=== PATIENT | male | born 1960 | race Caucasian/White ===

== ENCOUNTER → 2022-11-28 08:15 | Outpatient (BNVA) | payer MEDICARE, SELFPAY | PROVIDERS: PCP Nurse Practitioner Family; Visit Provider Nurse Practitioner Family | DX: I10 Essential (primary) hypertension (principal) | CPT/HCPCS: 80053; 80061; 82607; 83735; 84443; 85025 ==

== ENCOUNTER → 2023-02-11 11:40 | Outpatient (BNVA) | payer MEDICARE, SELFPAY | PROVIDERS: PCP Nurse Practitioner Family; Visit Provider Nurse Practitioner Family | DX: Z12.5 Encounter for screening for malignant neoplasm of prostate (principal); M25.572 Pain in left ankle and joints of left foot | CPT/HCPCS: 73610; G0103 ==

== ENCOUNTER 2023-03-04 07:32 | Outpatient (CLI) | payer MEDICARE, SELFPAY ==
--- NOTE | 2023-03-04 07:30 | CT_ITS ---
WS: [id number] CT LEFT ANKLE, NONCONTRAST. 3-D. HISTORY: M25.572 - Pain in left ankle and joints of left foot Technique: All CT scans at [facility] use at least one of these dose optimization techniques: automated exposure control; mA and/or kV adjustment per patient size (includes targeted exams where dose is matched to clinical indication); or iterative reconstruction. DLP: 118.52 mGy.cm COMPARISON: LEFT ankle radiograph 02/11/2023 No acute fracture or dislocation. No osteochondral lesions. There are a few small subchondral cystic changes involving the talus. No loose body or fracture. The overlying bony cortex is intact. No signi ficant narrowing of the joint space. Normal position of the flexor and extensor tendons visualized th rough the ankle joint. There is no significant joint effusion. No foreign body or soft tissue mass id entified. Small calcaneal spur measuring 6 mm. Subtalar joint is minimally narrowed. There are a few scattered calcifications in the anterior tibial artery. CT/CT ankle LT wo con* [id number] IMPRESSION: 1. No acute fracture or dislocation. 2. Minimal degenerative changes at the tibiotalar joint and subtalar joint. 3. No loose body and no significant joint effusion. 4. Peripheral arterial atherosclerotic disease, mild.
--- NOTE | 2023-03-04 08:42 | CT_ITS ---
WS: [id number] LDCT LUNG CANCER SCREENING HISTORY: PERSONAL HISTORY OF NICOTINE DEPENDENCE TECHNIQUE: Axial imaging performed from the apices to 1 cm below the costophrenic angles. Coronal and sagittal reformats are submitted with axial MIP series. All CT scans at [facility] use at least one of these dose optimization techniques: automated exposure control; mA and/or kV adjustment per patient size (includes targeted exams where dose is matched to clinical indication); or iterativ e reconstruction. DLP: 82.21 mGy.cm DIvol: Mean CTDIvol: 1.60 (mGy) COMPARISON: None. Diagnostic quality: Satisfactory Lungs: No abnormality. Heart: Normal size heart with no pericardial effusion.. Other findings: Extensive artifact over the thorax secondary to small metallic fragments. One of thes e artifacts within the anterior mediastinum. No adrenal mass. Metallic artifact upper abdomen either within the liver or close to the liver. Additional metallic artifact along the inferior heart border. Mild anterior wedging of T6. CT/CT lung screening [id number] IMPRESSION: LUNG-RADS: 1-Negative FOLLOW UP: 12 Month: Continue annual screening with LDCT OTHER FINDINGS (S MODIFIER): None.
== END 2023-03-04 07:33 | disposition home or self-care (01) ==
PROVIDERS: PCP Nurse Practitioner Family; Visit Provider Nurse Practitioner Family
DX: Z12.2 Encounter for screening for malignant neoplasm of respiratory organs (principal); Z87.891 Personal history of nicotine dependence; M25.572 Pain in left ankle and joints of left foot
CPT/HCPCS: 71271; 73700

== ENCOUNTER → 2023-03-15 09:24 | Outpatient (BNVA) | payer MEDICARE, SELFPAY | PROVIDERS: PCP Nurse Practitioner Family; Visit Provider Podiatrist Foot & Ankle Surgery | DX: I73.9 Peripheral vascular disease, unspecified (principal); I99.8 Other disorder of circulatory system; M25.572 Pain in left ankle and joints of left foot | CPT/HCPCS: 99204 ==

== ENCOUNTER 2023-03-16 12:52 | Emergency (ER) | payer MEDICARE, SELFPAY ==
[2023-03-16 12:56] VITALS: BP 135/84; PULSE 78; RESP 16; TEMP 36.8; O2SAT 94; BMI 27.8
--- NOTE | 2023-03-16 13:59 | ED_ITS ---
HPI - Extremity Problem General: Chief complaint: Extremity Problem,Nontraumatic Stated complaint: left foot pain Time Seen by Provider: 03/16/23 13:54 History of Present Illness: Mr. Perdomo is a 62-year-old gentleman presenting the emergency department for left foot pain. He previously has had problems with this foot over the past month however notes excruciating pain without known specific provoking event starting last night end discoloration of his great toe. Apparently he saw podiatry and was told that he has a clogged veins and has further outpatient eval ordered but due to pain cannot wait. Intensity is severe. Worse with weightbearing and palpation. No other specific changes in health, exacerbating, or alleviating factors identified. Onset (ago): day(s) Pain Consistency: constant Quality: burning and aching Radiation: none Exacerbating factors: weight bearing, walking and palpation Review of Systems General: Reports: 10 or more systems reviewed and unremarkable except in HPI and below PFSH ED 2 PFSH: Medical History Accelerated essential hypertension High cholesterol No pertinent family history Surgical History H/O left knee surgery Social History Smoking and tobacco status: current every day smoker cigarettes Packs smoked per day: 1.5 Years cigarettes smoked: 45 Second hand smoke exposure: No Alcohol intake: current Alcohol intake frequency: few times a week Alcohol type: beer Substance/Drug Use: never Lives independently: Yes Household members: significant other Marital status: Single service: No Current occupational status: disabled Current gender identity: Male Special kelly needs: No Physical Exam Const: COMMON NORMALS: alert GENERAL APPEARANCE: cooperative and well developed HENMT: COMMON NORMALS: normocephalic and atraumatic HEAD & SCALP: normocephalic and atraumatic Eye: COMMON NORMALS: conjunctivae normal CONJUNCTIVA: Yes conjunctivae normal SCLERA: sclerae normal Neck/C-Spine: COMMON NORMALS: supple GENERAL: Yes trachea midline Resp: COMMON NORMALS: normal respiratory effort EFFORT & INSPECTION: Yes able to speak in complete sentences Cardio: COMMON NORMALS: regular rate and regular rhythm RATE: regular rate RHYTHM: regular rhythm GI: COMMON NORMALS: Soft to palpation PALPATION: Yes Soft to palpation and No Tenderness to palpation present (GI) Extremity: NARRATIVE EXTREMITY EXAM: Left lower extremity with some prominent firm edema to the top of the foot. There is generalized tenderness palpation. Discoloration of the tip of the great toe. GENERAL: Yes normal exam except as noted and No edema Neuro: COMMON NORMALS: moves all extremities SENSORIUM/ORIENTATION: Yes alert and No Orientation impaired Psych: COMMON NORMALS: mental status grossly normal and Normal thought process present THOUGHT PROCESS: Normal thought process present Course Vital Signs: Vital signs: Vital Signs Temperature 98.3 F 03/16/23 12:56 Pulse Rate 76 03/16/23 19:08 Respiratory Rate 16 03/16/23 19:08 Blood Pressure 110/81 03/16/23 19:08 Pulse Oximetry 96 03/16/23 19:08 Oxygen Delivery Me thod Room Air 03/16/23 17:42 MDM - Extremity (Nontraumatic) Medical Decision Making 62-year-old gentleman presenting with atraumatic foot pain. Does have a history of similar though is now more severe and occurring constant at rest. Unable to palpate DP/PT. There is coolness however there is also evidence of collateral circulation with cap refill intact. Labs notable for mild leukocytosis which is nonspecific, normal hemoglobin and platelet count. Metabolic panel without significant derangement. Normal lactic acid. Patient has evidence of occlusion/thrombosis of the distal left SFA. There is flow below this however likely not sufficient. Clinically patient has rest pain and arterial insufficiency. During ED course patient treated with analgesia and heparin. Patient was accepted by vascular surgeon at [facility] and transferred for vascular intervention. The results of ED evaluation were discussed with the patient including plan for transfer due to requirement for level of care not available if discharged to prevent significant worsening/deterioration. Patient agreeable with plan. Medical Records I reviewed the patient's medical records. Lab Data I reviewed the patient's lab results. 03/16/23 14:43 03/16/23 14:43 Radiology Impressions Foot X-Ray 03/16/23 14:04 IMPRESSION: 1. 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 2. No acute bony abnormality. Lower Extremity CTA 03/16/23 14:04 IMPRESSION: 1. 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 2. The left popliteal artery is poorly visualized due to extensive streak artifact at the knee however just distal to the knee, there is a small amount of contrast in a very small caliber left popliteal artery most likely due to collateral vessels. 3. There is good opacification of the left posterior tibial artery throughout the left leg ankle and foot. The left peroneal artery is opacified but very atretic. Intermittent contrast is identified in the very atretic left peroneal artery. Laboratory Results WBC 12.7 10^3/uL (4.0-10.0) H 03/16/23 14:43 RBC 5.08 10^6/uL (4.1-5.3) 03/16/23 14:43 Hgb 15.4 g/dL (11.7-16.6) 03/16/23 14:43 Hct 47.5 % (42.0-52.0) 03/16/23 14:43 MCV 93.5 fl (80-94) 03/16/23 14:43 MCH 30.3 pg (28.0-34.0) 03/16/23 14:43 MCHC 32.4 g/dL (30.0-36.0) 03/16/23 14:43 RDW 13.6 % (12.1-15.1) 03/16/23 14:43 Plt Count 400 10^3/cmm (130-400) 03/16/23 14:43 MPV 10.3 fL (7.4-10.4) 03/16/23 14:43 Neut % (Auto) 67.5 % 03/16/23 14:43 Lymph % (Auto) 21.1 % 03/16/23 14:43 Beadle % (Auto) 7.6 % 03/16/23 14:43 Eos % (Auto) 2.3 % 03/16/23 14:43 Baso % (Auto) 0.9 % 03/16/23 14:43 Neut # (Auto) 8.57 10^3/uL (1.8-7.7) H 03/16/23 14:43 Lymph # (Auto) 2.7 10^3/uL (0.8-4.8) 03/16/23 14:43 Beadle # (Auto) 1.0 10^3/uL (0.2-0.9) H 03/16/23 14:43 Eos # (Auto) 0.3 10^3/uL (0.0-0.8) 03/16/23 14:43 Baso # (Auto) 0.1 10^3/uL (0.0-0.1) 03/16/23 14:43 Nucleated RBC % (auto) 0 % 03/16/23 14:43 Nucleated RBCs # 0.0 /100WBC 03/16/23 14:43 PT 13.60 SECONDS (12.1-14.9) 03/16/23 14:43 INR 1.01 (0.8-1.2) 03/16/23 14:43 APTT 35.1 SECONDS (23.9-36.7) 03/16/23 14:43 Sodium 137 mmol/L (136-145) 03/16/23 14:43 Potassium 4.7 mmol/L (3.5-5.1) 03/16/23 14:43 Chloride 102 mmol/L (98-107) 03/16/23 14:43 Carbon Dioxide 22 mmol/L (22-29) 03/16/23 14:43 Anion Gap 17.7 (5-19) 03/16/23 14:43 BUN 13 mg/dL (8-23) 03/16/23 14:43 Creatinine 0.9 mg/dL (0.7-1.2) 03/16/23 14:43 GFR Calculation 85.8 mL/min (90-130) L 03/16/23 14:43 Glucose 90 mg/dL (65-115) 03/16/23 14:43 Calculated Osmolality 284 mOsm/kg (285-295) L 03/16/23 14:43 Lactic Acid 1.0 mmol/L (0.5-2.2) 03/16/23 14:43 Calcium 9.3 mg/dL (8.5-10.5) 03/16/23 14:43 Total Bilirubin 0.3 mg/dL (0.15-1.2) 03/16/23 14:43 AST 35 U/L (0-40) 03/16/23 14:43 ALT 59 U/L (0-41) H 03/16/23 14:43 Alkaline Phosphatase 84 U/L (40-130) 03/16/23 14:43 Total Protein 7.0 g/dL (6.6-8.7) 03/16/23 14:43 Albumin 4.5 g/dL (3.5-5.2) 03/16/23 14:43 Globulin 2.5 g/dL (1.3-4.6) 03/16/23 14:43 Discharge Plan Discharge Patient Disposition: Transfer to ED Clinical Impression: Ischemic foot pain at rest Condition: Stable Prescriptions: No Action rosuvastatin 10 mg tablet 10 mg PO DAILY gabapentin 300 mg capsule 300 mg PO TID 90 Days Qty: 270 1RF diclofenac sodium 75 mg tablet,delayed release (DR/EC) 75 mg PO BID PRN (Reason: pain) Qty: 180 1RF (DME) CAM Boot Left See Rx Instructions .Route .MEDSUPPLY Qty: 1 0RF Rx Instructions: size to fit losartan 25 mg tablet 25 mg PO DAILY Qty: 90 3RF amitriptyline 10 mg Tablet 10 mg PO DAILY PRN (Reason: Anxiety) Referrals: Carla Browne FNP [Nurse Practitioner] - Coding Level of Care Code ED Assistant Chief Train Dispatcher for Gautam Arauz
--- NOTE | 2023-03-16 14:04 | XRR_ITS ---
PROCEDURE INFORMATION: Exam: XR Left Foot Exam date and time: 03/16/2023 2:17 PM Age: 62 years old Clinical indication: Pain; Foot; Left; Additional info: Foot pain, atraumatic TECHNIQUE: Imaging protocol: Radiologic exam of the left foot. Views: 3 or more views. COMPARISON: CR XR ankle LT min 3V* [id number] 02/11/2023 11:54 AM FINDINGS: Bones/joints: Are [id number] degenerative changes especially in the midfoot. There is calcaneal enthesopathy. No acute fracture, dislocation or bony destruction. No osteomyelitis. No inflammatory erosions. It appears there may be an incidental calcaneal navicular coalition/fibrous coalition on the oblique view. Soft tissues: Normal. XR/XR foot LT min 3V* [id number] IMPRESSION: 1. 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 2. No acute bony abnormality.
--- NOTE | 2023-03-16 14:04 | CTR_ITS ---
PROCEDURE INFORMATION: Exam: CTA Left Lower Extremity With Contrast Exam date and time: 03/16/2023 3:15 PM Age: 62 years old Clinical indication: Pain; Foot; Left; Additional info: L foot pain, discoloration, eval arterial insufficiency TECHNIQUE: Imaging protocol: Computed tomographic angiography of the left lower extremity with contrast. 3D rendering (Not supervised by radiologist): MIP and/or 3D reconstructed images were created by the technologist. Radiation optimization: All CT scans at this facility use at least one of these dose optimization techniques: automated exposure control; mA and/or kV adjustment per patient size (includes targeted exams where dose is matched to clinical indication); or iterative reconstruction. Contrast material: OMNI 350; Contrast volume: 100 ml; Contrast route: INTRAVENOUS (IV); REPORTING DATA: Count of CT and Cardiac NM exams in prior 12 months: This patient has received 2 known CTs and 0 known cardiac nuclear medicine studies in the 12 months prior to the current study. COMPARISON: CT ankle LT wo con* [id number] 03/04/2023 7:46 AM RADIATION DOSE METRICS: Total DLP (mGy-cm): 464.71 FINDINGS: Left femoral/popliteal arteries: Left iliac, external iliac, common femoral and proximal superficial femoral arteries are patent with mild plaque. 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 The left popliteal artery is poorly visualized due to extensive streak artifact at the knee however just distal to the knee, there is a small amount of contrast in a very small caliber left popliteal artery most likely due to collateral vessels. Left infrapopliteal arteries: There is good opacification of the left posterior tibial artery throughout the left leg ankle and foot. The left peroneal artery is opacified but very atretic. Intermittent contrast is identified in the very atretic left peroneal artery. Bones/joints: There is a satisfactory appearance of the left total knee arthroplasty. No acute bony abnormality. There is a moderate sized left knee joint effusion. Soft tissues: Several metallic BBs are noted in the soft tissues of both upper thighs and pelvis. [place] [id number] IMPRESSION: 1. 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 2. The left popliteal artery is poorly visualized due to extensive streak artifact at the knee however just distal to the knee, there is a small amount of contrast in a very small caliber left popliteal artery most likely due to collateral vessels. 3. There is good opacification of the left posterior tibial artery throughout the left leg ankle and foot. The left peroneal artery is opacified but very atretic. Intermittent contrast is identified in the very atretic left peroneal artery.
[2023-03-16 14:37] VITALS: RESP 16; O2SAT 95
[2023-03-16] MEDS: morphine 4 mg/mL SDV 1 mL IVP (14:37)
[2023-03-16 14:52] VITALS: BP 135/81; RESP 16; O2SAT 95
[2023-03-16 15:06] LABS: Basophils # 0.1 10^3/uL (0.0-0.1); Basophils % 0.9 %; Eosinophils # 0.3 10^3/uL (0.0-0.8); Eosinophils % 2.3 %; Hematocrit 47.5 % (42.0-52.0); Hemoglobin 15.4 g/dL (11.7-16.6); Lymphocytes # 2.7 10^3/uL (0.8-4.8); Lymphocytes % 21.1 %; Mean Corpuscular HGB Conc 32.4 g/dL (30.0-36.0); Mean Corpuscular Hemoglobin 30.3 pg (28.0-34.0); Mean Corpuscular Volume 93.5 fl (80-94); Mean Platelet Volume 10.3 fL (7.4-10.4); Monocytes % 7.6 %; Neutrophils # 8.57 10^3/uL (1.8-7.7); Neutrophils % 67.5 %; Nucleated Red Blood Cells % 0 %; Platelet Count 400 10^3/cmm (130-400); Red Blood Count 5.08 10^6/uL (4.1-5.3); Red Cell Distribution Width 13.6 % (12.1-15.1); White Blood Count 12.7 10^3/uL (4.0-10.0)
[2023-03-16 15:19] LABS: INR 1.01 (0.8-1.2)
[2023-03-16 15:21] LABS: Partial Thromboplastin Time 35.1 SECONDS (23.9-36.7)
[2023-03-16] MEDS: iohexol 350 mg/mL 500 mL Btl (per mL) IV (15:23)
[2023-03-16 15:26] LABS: Alanine Aminotransferase 59 U/L (0-41); Albumin Level 4.5 g/dL (3.5-5.2); Alkaline Phosphatase 84 U/L (40-130); Aspartate Amino Transferase 35 U/L (0-40); Blood Urea Nitrogen 13 mg/dL (8-23); Calcium 9.3 mg/dL (8.5-10.5); Carbon Dioxide 22 mmol/L (22-29); Chloride 102 mmol/L (98-107); Globulin 2.5 g/dL (1.3-4.6); Glomerular Filtration Rate 85.8 mL/min (90-130); Glucose 90 mg/dL (65-115); Osmolality Calculated 284 mOsm/kg (285-295); Sodium 137 mmol/L (136-145); Total Bilirubin 0.3 mg/dL (0.15-1.2)
[2023-03-16 15:34] LABS: Anion Gap 17.7 (5-19); Potassium 4.7 mmol/L (3.5-5.1)
[2023-03-16 17:42] VITALS: BP 169/85; PULSE 75; RESP 16; O2SAT 97
[2023-03-16] MEDS: heparin 5,000 unit/mL INJ 1 mL IV (18:24)
[2023-03-16] MEDS: heparin drip 25,000 UNIT/500 ML PREMIX 26.04 UNIT IV (18:25)
[2023-03-16 19:08] VITALS: BP 110/81; PULSE 76; RESP 16; O2SAT 96
== END 2023-03-16 19:26 ==
PROVIDERS: Emergency Provider Emergency Medicine
DX: M79.672 Pain in left foot (principal); I99.8 Other disorder of circulatory system; I10 Essential (primary) hypertension; F17.210 Nicotine dependence, cigarettes, uncomplicated
CPT/HCPCS: 73630; 73706; 80053; 83605; 85025; 85610; 85730; 96374; 96375; 99285; J1644; J2270; Q9967

== ENCOUNTER 2023-03-28 18:49 | Emergency (ER) | payer MEDICARE, SELFPAY ==
[2023-03-28 19:18] VITALS: BP 111/67; PULSE 86; RESP 16; TEMP 36.7; O2SAT 96
--- NOTE | 2023-03-28 21:58 | CTR_ITS ---
PROCEDURE INFORMATION: Exam: CTA Abdominal Aorta and Bilateral Lower Extremities (Run-off) With Contrast Exam date and time: 03/28/2023 10:44 PM Age: 62 years old Clinical indication: Other: Swelling lle; Prior surgery; Surgery date: 3-7 days post-operative; Surgery type: Lle stent; Additional info: Lle prior surgery for occlusion, increased pain/redness/swel TECHNIQUE: Imaging protocol: Computed tomographic angiography of the of the abdominal aorta, pelvis and bilateral lower extremities with contrast. 3D rendering (Not supervised by radiologist): MIP and/or 3D reconstructed images were created by the technologist. Radiation optimization: All CT scans at this facility use at least one of these dose optimization techniques: automated exposure control; mA and/or kV adjustment per patient size (includes targeted exams where dose is matched to clinical indication); or iterative reconstruction. Contrast material: OMNI 350; Contrast volume: 130 ml; Contrast route: INTRAVENOUS (IV); REPORTING DATA: Count of CT and Cardiac NM exams in prior 12 months: This patient has received 3 known CTs and 0 known cardiac nuclear medicine studies in the 12 months prior to the current study. COMPARISON: [place] [id number] 03/16/2023 3:15 PM RADIATION DOSE METRICS: Total DLP (mGy-cm): 1019.81 FINDINGS: Aorta: Atherosclerotic changes of the aorta. Celiac trunk and mesenteric arteries: No occlusion or significant stenosis. Renal arteries: No occlusion or significant stenosis. Right iliac arteries: No occlusion or significant stenosis. Right femoral/popliteal arteries: No occlusion or significant stenosis. Right infrapopliteal arteries: No occlusion or significant stenosis. Left iliac arteries: No occlusion or significant stenosis. Left femoral/popliteal arteries: Interval placement of a stent in the left superficial femoral artery which appears patent. Evaluation of the stent at the level of the popliteal artery at the knee is nondiagnostic due to extensive streak artifact from metallic hardware. However, just distal to the knee contrast is noted in a small caliber popliteal artery and several collateral vessels. Opacification is noted in the vessels throughout the ankle and foot. Left infrapopliteal arteries: Above. Liver: Unremarkable. Gallbladder and bile ducts: Unremarkable. No calcified stones. No ductal dilation. Pancreas: Unremarkable. No mass. No ductal dilation. Spleen: Normal. No splenomegaly. Adrenal glands: Normal. No mass. Kidneys and ureters: Normal. No mass. Stomach and bowel: Unremarkable. No obstruction. No mucosal thickening. Appendix: No evidence of appendicitis. Urinary bladder: Unremarkable. No mass. Reproductive: Unremarkable as visualized. Intraperitoneal space: Unremarkable. No free air. No significant fluid collection. Lymph nodes: No lymphadenopathy. Bones/joints: Evaluation of the stent at the level of the popliteal artery at the knee is nondiagnostic due to extensive streak artifact from metallic hardware. Soft tissues: There is soft tissue edema of the left lower extremity. The CT/CT angio abd aorta runof [id number] IMPRESSION: Interval placement of a stent in the left superficial femoral artery which appears patent. Evaluation of the stent at the level of the popliteal artery at the knee is nondiagnostic due to extensive streak artifact from metallic hardware. However, just distal to the knee contrast is noted in a small caliber popliteal artery and several collateral vessels. Opacification is noted in the vessels throughout the ankle and foot. There is soft tissue edema of the left lower extremity.
--- NOTE | 2023-03-28 22:09 | ED_ITS ---
HPI - Extremity Problem General: Chief complaint: Extremity Injury, Lower Stated complaint: left foot swelling Time Seen by Provider: 03/28/23 22:04 History of Present Illness: 62-year-old gentleman with complex past medical history presenting with increased left lower extremity swelling and discoloration. Of note he was transferred for left lower extremity limb ischemia with rest pain on 03/16. Had been doing well postoperatively until 2 days ago. Increased swelling, redness, pain and discoloration of the toes. Worse today. He reports compliance with medication regimen and recent addition of antibiotics for possible infection. No other specific changes in health, exacerbating, or alleviating factors identified. Onset (ago): day(s) Quality: burning and aching Relieving factors: nothing Exacerbating factors: nothing Associated symptoms: Reports other Review of Systems General: Reports: 10 or more systems reviewed and unremarkable except in HPI and below PFSH ED PFSH: Medical History Accelerated essential hypertension High cholesterol No pertinent family history Surgical History H/O left knee surgery Social History Smoking and tobacco status: current every day smoker cigarettes Packs smoked per day: 1.5 Years cigarettes smoked: 45 Second hand smoke exposure: No Alcohol intake: current Alcohol intake frequency: few times a week Alcohol type: beer Substance/Drug Use: never Lives independently: Yes Household members: significant other Marital status: Single service: No Current occupational status: disabled Current gender identity: Male Special kelly needs: No Physical Exam Const: COMMON NORMALS: alert GENERAL APPEARANCE: cooperative and well developed HENMT: COMMON NORMALS: normocephalic and atraumatic HEAD & SCALP: normocephalic and atraumatic Eye: COMMON NORMALS: conjunctivae normal CONJUNCTIVA: Yes conjunctivae normal SCLERA: sclerae normal Neck/C-Spine: COMMON NORMALS: supple GENERAL: Yes trachea midline Resp: COMMON NORMALS: clear to auscultation bilaterally EFFORT & INSPECTION: Yes able to speak in complete sentences AUSCULTATION: clear to auscultation bilaterally Cardio: COMMON NORMALS: regular rate and regular rhythm RATE: regular rate RHYTHM: regular rhythm GI: COMMON NORMALS: Soft to palpation PALPATION: Yes Soft to palpation and No Tenderness to palpation present (GI) Extremity: NARRATIVE EXTREMITY EXAM: Left lower extremity with circumferential swelling. There is mild warmth. Surgical incision appears appropriately healing without drainage. Perhaps a few small areas of increased erythema at wound margins. Unable to Doppler vascular signals. GENERAL: Yes normal exam except as noted and No edema Neuro: COMMON NORMALS: moves all extremities SENSORIUM/ORIENTATION: Yes alert and No Orientation impaired Psych: COMMON NORMALS: mental status grossly normal and Normal thought process present THOUGHT PROCESS: Normal thought process present Course Vital Signs: Vital signs: Vital Signs Temperature 98.1 F 03/28/23 19:18 Pulse Rate 67 03/29/23 03:56 Respiratory Rate 16 03/29/23 03:56 Blood Pressure 109/52 03/29/23 03:56 Pulse Oximetry 94 03/29/23 03:56 Oxygen Delivery Me thod Room Air 03/28/23 19:18 MDM - Extremity (Nontraumatic) Medical Decision Making 62-year-old gentleman presenting with postoperative concern. Exam as above. Labs with leukocytosis, normal hemoglobin and thrombocytosis is present. Lactic acid is normal. No electrolyte derangement. Mild elevation in the ALT again noted. Given concerning exam for possible graft failure/other complication CT imaging is appropriate. CT demonstrates stent which appears patent. Patient treated with analgesia and given antibiotics in ED course. He feels improved. Discussed with vascular surgery who is familiar with patient's case and had prescribed him the Augmentin. I do not believe that patient requires transfer at this time and after discussion neither does vascular surgeon. Plan for continued antibiotics and outpatient follow-up with strict return precautions. The results of ED evaluation were discussed with the patient including prescriptions and/or symptomatic cares (if applicable) including appropriate and responsible use, followup plan, and return precautions. The patient verbalized understanding and felt safe for discharge. Medical Records I reviewed the patient's medical records. Lab Data I reviewed the patient's lab results. 03/28/23 22:27 03/28/23 22:27 Radiology Impressions Aorta w/Runoff CTA 03/28/23 21:58 IMPRESSION: Interval placement of a stent in the left superficial femoral artery which appears patent. Evaluation of the stent at the level of the popliteal artery at the knee is nondiagnostic due to extensive streak artifact from metallic hardware. However, just distal to the knee contrast is noted in a small caliber popliteal artery and several collateral vessels. Opacification is noted in the vessels throughout the ankle and foot. There is soft tissue edema of the left lower extremity. Laboratory Results WBC 14.4 10^3/uL (4.0-10.0) H 03/28/23 22: RBC 4.03 10^6/uL (4.1-5.3) L 03/28/23: Hgb 12.3 g/dL (11.7-16.6) 03/28/23: Hct 38.1 % (42.0-52.0) L 03/28/23: MCV 94.5 fl (80-94) H 03/28/23: MCH 30.5 pg (28.0-34.0) 03/28/23: MCHC 32.3 g/dL (30.0-36.0) 03/28/23: RDW 13.7 % (12.1-15.1) 03/28/23: Plt Count 522 10^3/cmm (130-400) H 03/28/23: MPV 9.9 fL (7.4-10.4) 03/28/23: Neut % (Auto) 63.3 % 03/28/23: Lymph % (Auto) 24.3 % 03/28/23: [place] % (Auto) 7.1 % 03/28/23: Eos % (Auto) 3.3 % 03/28/23: Baso % (Auto) 1.0 % 03/28/23: Neut # (Auto) 9.11 10^3/uL (1.8-7.7) H 03/28/23: Lymph # (Auto) 3.5 10^3/uL (0.8-4.8) 03/28/23: [place] # (Auto) 1.0 10^3/uL (0.2-0.9) H 03/28/23: Eos # (Auto) 0.5 10^3/uL (0.0-0.8) 03/28/23: Baso # (Auto) 0.1 10^3/uL (0.0-0.1) 03/28/23 22:27 Nucleated RBC % (auto) 0 % 03/28/23 22:27 Nucleated RBCs # 0.0 /100WBC 03/28/23 22:27 PT 13.90 SECONDS (12.1-14.9) 03/28/23 22:27 INR 1.03 (0.8-1.2) 03/28/23 22:27 APTT 36.6 SECONDS (23.9-36.7) 03/28/23 22:27 Sodium 140 mmol/L (136-145) 03/28/23 22:27 Potassium 4.0 mmol/L (3.5-5.1) 03/28/23 22:27 Chloride 104 mmol/L (98-107) 03/28/23 22:27 Carbon Dioxide 23 mmol/L (22-29) 03/28/23 22:27 Anion Gap 17.0 (5-19) 03/28/23 22:27 BUN 14 mg/dL (8-23) 03/28/23 22:27 Creatinine 0.9 mg/dL (0.7-1.2) 03/28/23 22:27 GFR Calculation 85.8 mL/min (90-130) L 03/28/23 22:27 Glucose 164 mg/dL (65-115) H 03/28/23 22:27 Calculated Osmolality 294 mOsm/kg (285-295) 03/28/23 22:27 Lactic Acid 2.1 mmol/L (0.5-2.2) 03/28/23 22:27 Lactic Acid (Sepsis) 0.9 mmol/L (0.5-2.2) 03/29/23 02:15 Calcium 8.8 mg/dL (8.5-10.5) 03/28/23 22:27 Total Bilirubin 0.2 mg/dL (0.15-1.2) 03/28/23 22:27 AST 28 U/L (0-40) 03/28/23 22:27 ALT 64 U/L (0-41) H 03/28/23 22:27 Alkaline Phosphatase 73 U/L (40-130) 03/28/23 22:27 Total Protein 6.7 g/dL (6.6-8.7) 03/28/23 22:27 Albumin 4.0 g/dL (3.5-5.2) 03/28/23 22:27 Globulin 2.7 g/dL (1.3-4.6) 03/28/23 22:27 Discharge Plan Discharge Patient Disposition: Home Clinical Impression: Post-operative pain, Leg swelling Condition: Stable Prescriptions: New oxycodone 5 mg tablet 5 mg PO Q4H PRN (Reason: pain) Qty: 10 0RF No Action rosuvastatin 10 mg tablet 10 mg PO DAILY gabapentin 300 mg capsule 300 mg PO TID 90 Days Qty: 270 1RF diclofenac sodium 75 mg tablet,delayed release (DR/EC) 75 mg PO BID PRN (Reason: pain) Qty: 180 1RF (DME) CAM Boot Left See Rx Instructions .Route .MEDSUPPLY Qty: 1 0RF Rx Instructions: size to fit losartan 25 mg tablet 25 mg PO DAILY Qty: 90 3RF amitriptyline 10 mg Tablet 10 mg PO DAILY PRN (Reason: Anxiety) Discharge Orders: Discharge ED (Routine); Ordered 03/29/23 Ordered By: Neville Delgado Discharge Diet: Usual diet Discharge Activity: Limit activity as instructed Patient Instructions: Leg Edema (ED), Opioid Safety, Post Operative Pain Activity Restrictions/Additional Instructions: Thank you for visiting the emergency department. You were seen evaluated for concern over postoperative swelling. The most likely cause of your symptoms is related to normal postoperative course. Please continue your Augmentin previously prescribed. I will prescribe additional doses of pain medication. Use these cautiously. Please follow all previously given instructions regarding activity and wound care. In discussion with vascular surgery they recommended gentle compression as well as elevation. Return for uncontrolled symptoms or anything else that you are concerned about and feel needs emergency department evaluation. Coding Level of Care Code ED Inspectors And Regulatory Officers for Gautam Arauz
[2023-03-28 22:36] VITALS: RESP 16
[2023-03-28 22:36] LABS: Basophils # 0.1 10^3/uL (0.0-0.1); Eosinophils # 0.5 10^3/uL (0.0-0.8); Eosinophils % 3.3 %; Hematocrit 38.1 % (42.0-52.0); Hemoglobin 12.3 g/dL (11.7-16.6); Lymphocytes # 3.5 10^3/uL (0.8-4.8); Lymphocytes % 24.3 %; Mean Corpuscular HGB Conc 32.3 g/dL (30.0-36.0); Mean Corpuscular Hemoglobin 30.5 pg (28.0-34.0); Mean Corpuscular Volume 94.5 fl (80-94); Mean Platelet Volume 9.9 fL (7.4-10.4); Monocytes % 7.1 %; Neutrophils # 9.11 10^3/uL (1.8-7.7); Neutrophils % 63.3 %; Nucleated Red Blood Cells % 0 %; Platelet Count 522 10^3/cmm (130-400); Red Blood Count 4.03 10^6/uL (4.1-5.3); Red Cell Distribution Width 13.7 % (12.1-15.1); White Blood Count 14.4 10^3/uL (4.0-10.0)
[2023-03-28] MEDS: morphine 4 mg/mL SDV 1 mL IVP (22:36)
[2023-03-28] MEDS: iohexol 350 mg/mL 500 mL Btl (per mL) IV (22:38)
[2023-03-28 22:42] VITALS: BP 112/72
[2023-03-28 22:53] LABS: Lactic Sepsis W/Reflex 2.1 mmol/L (0.5-2.2)
[2023-03-28 22:54] LABS: Alanine Aminotransferase 64 U/L (0-41); Alkaline Phosphatase 73 U/L (40-130); Aspartate Amino Transferase 28 U/L (0-40); Blood Urea Nitrogen 14 mg/dL (8-23); Calcium 8.8 mg/dL (8.5-10.5); Carbon Dioxide 23 mmol/L (22-29); Chloride 104 mmol/L (98-107); Globulin 2.7 g/dL (1.3-4.6); Glomerular Filtration Rate 85.8 mL/min (90-130); Glucose 164 mg/dL (65-115); Osmolality Calculated 294 mOsm/kg (285-295); Sodium 140 mmol/L (136-145); Total Bilirubin 0.2 mg/dL (0.15-1.2); Total Protein 6.7 g/dL (6.6-8.7)
[2023-03-28 23:00] VITALS: BP 127/76; PULSE 76; RESP 16; O2SAT 96
[2023-03-28 23:35] LABS: INR 1.03 (0.8-1.2)
[2023-03-28 23:36] LABS: Partial Thromboplastin Time 36.6 SECONDS (23.9-36.7)
[2023-03-29] VITALS: BP 147/78; PULSE 83; RESP 16; O2SAT 94
[2023-03-29 00:21] LABS: Reflex Lactate Order REFLEX LACTIC ORDERD
[2023-03-29 01:00] VITALS: BP 129/77; PULSE 81; RESP 16; O2SAT 93
[2023-03-29] MEDS: vancomycin 2,000 MG/400 ML PIGGYBACK 200 MG IV (01:49)
[2023-03-29 02:00] VITALS: BP 115/69; PULSE 94; RESP 16; O2SAT 94
[2023-03-29 02:55] LABS: Lactic Acid level (Lactate) 0.9 mmol/L (0.5-2.2)
[2023-03-29 03:56] VITALS: BP 109/52; PULSE 67; RESP 16; O2SAT 94
[2023-03-29] MEDS: cefepime 2,000 MG in sodium chloride 0.9% (plus) 50 ML 100 MG IV (03:57)
== END 2023-03-29 04:42 | disposition home or self-care (01) ==
PROVIDERS: Emergency Provider Emergency Medicine
DX: G89.18 Other acute postprocedural pain (principal); M79.89 Other specified soft tissue disorders; D72.829 Elevated white blood cell count, unspecified; D75.839 Thrombocytosis, unspecified; R79.89 Other specified abnormal findings of blood chemistry
CPT/HCPCS: 36415; 75635; 80053; 83605; 85025; 85610; 85730; 87040; 96374; 96375; 99285; J0692; J2270; J3372; Q9967